=== PATIENT | female | born 1945 | race Hispanic/Latino ===

== ENCOUNTER 2018-04-01 13:58 | Emergency (ER) | payer MEDICARE ==
[2018-04-01 14:10] VITALS: BMI 29.2
[2018-04-01 14:13] VITALS: RESP 18
[2018-04-01] MEDS ORDERED: Lidocaine 5% Patch TD STA (14:29)
--- NOTE | 2018-04-01 14:58 | ED PDOC ---
Arrival/HPI - General Chief Complaint: Upper Extremity Problem/Injury Time Seen by Provider: 04/01/18 14:21 Historian: Patient - History of Present Illness Narrative History of Present Illness (Text): 73 y/o F w/ h/o chronic bronchitis, and occasional shortness of breath, and lymph node removal (about 20 years ago), presenting to the emergency department complaining of aching right-sided neck pain radiating to her shoulder since Thursday. She states she was watching TV and suddenly started to experience right sided neck pain. Patient notes she was at [facility] ([place]) earlier today, where she was given 3 Tylenol and a Valium pill at 09:00 this morning, without significant alleviation in pain. Patient denies ever having these symptoms in the past. Patient denies any changes in vision, recent falls, injuries, or any other compl aints. PMD: Dr. Lopez Time/Duration: > week (patient notes onset 03/28/18, 4 days ago) Symptom Onset: Sudden Symptom Course: Unchanged Quality: Aching Severity Level: Moderate Activities at Onset: Rest Context: Home (patient notes she was at home watching TV) Past Medical History - Provider Review Nursing Documentation Reviewed: Yes - Travel History Have you recently traveled outside [place] w/in the past 3 mons?: No - Cardiac Hx Cardiac Disorders: No - Pulmonary Hx Bronchitis: Yes - Neurological Hx Neurological Disorder: No - HEENT Hx HEENT Disorder: No - Renal Hx Renal Disorder: No - Endocrine/Metabolic Hx Endocrine Disorders: No - Hematological/Oncological Hx Blood Disorders: No - Integumentary Hx Dermatological Disorder: No - Musculoskeletal/Rheumatological Hx Musculoskeletal Disorders: No - Gastrointestinal Hx Gastrointestinal Disorders: No - Genitourinary/Gynecological Hx Genitourinary Disorders: No - Psychiatric Hx Psychophysiologic Disorder: No Hx Substance Use: No Family/Social History - Physician Review Nursing Documentation Reviewed: Yes Family/Social History: No Known Family HX Smoking Status: Never Smoked Hx Alcohol Use: No Hx Substance Use: No Allergies/Home Meds Allergies/Adverse Reactions: Allergies No Known Allergies Allergy (Verified 04/01/18 14:10) Home Medications: Home Meds Medication Instructions Recorded Confirmed Cholecalciferol (Vitamin D3) 1 tab PO DAILY 04/01/18 04/01/18 [D3-5000 90 mg-5000 Iu] Levothyroxine Sodium [Levoxyl] 0.1 mg PO DAILY 04/01/18 04/01/18 Phentermine HCl [Adipex-P] 37.5 mg PO DAILY 04/01/18 04/01/18 RX: Aspirin [Aspirin Chewable] 81 mg PO DAILY 04/01/18 04/01/18 RX: Simvastatin 10 mg PO DAILY 04/01/18 04/01/18 RX: hydroCHLOROthiazide 25 mg PO DAILY 04/01/18 04/01/18 [Hydrodiuril] amLODIPine [Norvasc] 5 mg PO DAILY 04/01/18 04/01/18 Review of Systems - Physician Review All systems were reviewed & negative as marked: Yes - Review of Systems Eyes: Normal. absent: Vision Changes Musculoskeletal: Neck Pain (patient notes aching right-sided neck pain, radiating to right shoulder ), Other (right shoulder pain ). absent: Normal Physical Exam Vital Signs Reviewed: Yes Vital Signs Temp Pulse Resp BP Pulse Ox 04/01/18 14:10 97.5 F L 138 H 18 93/63 L 98 Temperature: Afebrile Blood Pressure: Hypotensive (at 93/63) Pulse: Tachycardic (at 138) Respiratory Rate: Normal Appearance: Positive for: Well-Appearing, Non-Toxic Pain Distress: Mild Mental Status: Positive for: Alert and Oriented X 3 - Systems Exam Head: Present: Atraumatic, Normocephalic, Other (Unable to rotate neck to right side) Pupils: Present: PERRL Extroacular Muscles: Present: EOMI Conjunctiva: Present: Normal Mouth: Present: Moist Mucous Membranes Neck: Present: Paraspinal Tenderness (Right sided trapezius tenderness), Other (Limited ROM towards R side). No: Meningeal Signs, MIDLINE TENDERNESS Respiratory/Chest: Present: Clear to Auscultation, Good Air Exchange. No: Respiratory Distress, Accessory Muscle Use Cardiovascular: Present: Regular Rate and Rhythm, Normal S1, S2. No: Murmurs Abdomen: No: Tenderness, Distention, Peritoneal Signs Back: Present: Normal Inspection. No: Midline Tenderness Upper Extremity: Present: NORMAL PULSES, Tenderness (TTP of right trapezius muscle), Neurovascularly Intact (no loss of sensation), Other (motor strength preserved in upper extremities). No: Normal Inspection, Cyanosis, Edema Lower Extremity: Present: Normal Inspection. No: Edema Neurological: Present: GCS=15, CN II-XII Intact, Speech Normal, Normal Sensory Function Skin: Present: Warm, Dry, Normal Color. No: Rashes Psychiatric: Present: Alert, Oriented x 3, Normal Insight, Normal Concentration Medical Decision Making ED Course and Treatment: 04/01/18 14:21 Impression: 73 year old female who presents to the emergency department complaining of aching right-sided neck pain radiating to her shoulder since Thursday. Differential Diagnosis included but are not limited to: Cervical stenosis Musculoskeletal pain Torticollis Plan: -- CT of cervical spine w/o Contrast -- Lidoderm -- Toradol -- Valium -- Reassess and disposition Prior Visits: Notes and results from previous visits were reviewed. Progress Notes: 04/01/18 16:14 Patient reassessed and reports improvement in pain. CT findings consistent with disk bulge at C6-C7. Patient informed of findings and will follow up with PCP. Neurosurgery follow up also provided. Scripts given. Patient is stable for discharge. - RAD Interpretation Narrative RAD Interpretations (Text): CT of cervical spine reviewed by radiologist, shows: Dictator : Thor Chaidez MD Report Date : 04/01/2018 15:36:06 FINDINGS: VERTEBRAE: No fracture. Normal alignment. No destructive bony lesion. DISCS/SPINAL CANAL/NEURAL FORAMINA: No significant central canal or neural foraminal stenosis. There is mild disc degeneration at C5-6 and C6-7. There is a left paracentral disc protrusion and osteophyte at C5-6. PARASPINAL SOFT TISSUES: Unremarkable. OTHER FINDINGS: None. IMPRESSION: No acute findings Radiology Orders: 04/01/18 14:29 CERVICAL SPINE W/O CONTRAST [CT] Stat Cyber Security Engineer: Radiologist - Medication Orders Current Medication Orders: Discontinued Medications Diazepam (Valium) 5 mg PO ONCE ONE; Protocol Stop: 04/01/18 14:29 Ketorolac Tromethamine (Toradol) 60 mg IM STAT STA Stop: 04/01/18 14:29 Lidocaine (Lidoderm) 1 ea TD DAILY STA Stop: 04/01/18 14:30 - Scribe Statement The provider has reviewed the documentation as recorded by the Scribe Yolanda Castellanos All medical record entries made by the Scribe were at my direction and personally dictated by me. I have reviewed the chart and agree that the record accurately reflects my personal performance of the history, physical exam, medical decision making, and the department course for this patient. I have also personally directed, reviewed, and agree with the discharge instructions and disposition. Disposition/Present on Arrival - Present on Arrival Any Indicators Present on Arrival: No History of DVT/PE: No History of Uncontrolled Diabetes: No Urinary Catheter: No History of Decub. Ulcer: No History Surgical Site Infection Following: None - Disposition Have Diagnosis and Disposition been Completed?: Yes Diagnosis: Sprain of cervical neck, Bulging of cervical intervertebral disc Disposition: HOME/ ROUTINE Disposition Time: 16:09 Patient Plan: Discharge Condition: IMPROVED Discharge Instructions (ExitCare): Cervical Muscle Strain (DC), Neck Sprain (DC), Intervertebral Discectomy (DC) Prescriptions: Cyclobenzaprine [Flexeril] 5 mg PO PRN PRN 10 Days #10 tab PRN Reason: Muscle Spasm Ibuprofen [Motrin] 600 mg PO Q6H #12 tab Lidocaine 5% [Lidoderm] 1 ea TD Q12H 5 Days #5 patch Referrals: Donovan Lopez MD [Primary Care Provider] - Follow up with primary Rudy Kaiser MD [Staff Provider] - Follow up with primary Forms: [employer] ([employer])
[2018-04-01 15:06] VITALS: BP 125/68; PULSE 94; TEMP 97.6; O2SAT 95
--- NOTE | 2018-04-01 15:39 | CT ---
Date of service: 04/01/2018 PROCEDURE: CT Cervical Spine without contrast HISTORY: neck pain w/ limited ROM COMPARISON: None available. TECHNIQUE: Axial computed tomography images were obtained of the cervical spine without the use of intravenous contrast. Coronal and sagittal reformatted images were created and reviewed. Radiation dose: Total exam DLP = 608.34 mGy-cm. This CT exam was performed using one or more of the following dose reduction techniques: Automated exposure control, adjustment of the mA and/or kV according to patient size, and/or use of iterative reconstruction technique. FINDINGS: VERTEBRAE: No fracture. Normal alignment. No destructive bony lesion. DISCS/SPINAL CANAL/NEURAL FORAMINA: No significant central canal or neural foraminal stenosis. There is mild disc degeneration at C5-6 and C6-7. There is a left paracentral disc protrusion and osteophyte at C5-6. PARASPINAL SOFT TISSUES: Unremarkable. OTHER FINDINGS: None. IMPRESSION: No acute findings
== END 2018-04-01 16:30 | disposition home or self-care (01) ==
LOC: ED 13:58
DX: S13.4XXA Sprain of ligaments of cervical spine, initial encounter (principal); X58.XXXA Exposure to other specified factors, initial encounter
CPT/HCPCS: 72125; 96372; 99284; J1885

== ENCOUNTER 2018-06-15 10:24 | Inpatient (IN) | payer MEDICARE ==
[2018-06-15 10:26] VITALS: BMI 25.6
[2018-06-15] MEDS ORDERED: Levalbuterol 1.25 MG/3 ML Inhal Soln UD IH STA (10:43)
--- NOTE | 2018-06-15 10:47 | ED PDOC ---
Arrival/HPI - General Time Seen by Provider: 06/15/18 10:30 Historian: Patient - History of Present Illness Narrative History of Present Illness (Text): 06/15/18 10:44 73yo female with past medical history of hypertension, COPD, Cervical spine surgery (s/p sgx 2months ago), developed left arm thrombus s/p surgery, currently on Xarelto, present with complaint of shortness of breath since this morning. Notes shortness of breath is not exertional. She is a tobacco smoker. Reports Orthopnea since this morning. Denies chest pain, LE edema, calf pain, dizziness, cough, diaphoresis, nausea, vomiting, ripping tearing upper back pain, any other complaint. Past Medical History - Provider Review Nursing Documentation Reviewed: Yes - Cardiac Hx Cardiac Disorders: No - Pulmonary Hx Bronchitis: Yes - Neurological Hx Neurological Disorder: No - HEENT Hx HEENT Disorder: No - Renal Hx Renal Disorder: No - Endocrine/Metabolic Hx Endocrine Disorders: No - Hematological/Oncological Hx Blood Disorders: No - Integumentary Hx Dermatological Disorder: No - Musculoskeletal/Rheumatological Hx Musculoskeletal Disorders: No - Gastrointestinal Hx Gastrointestinal Disorders: No - Genitourinary/Gynecological Hx Genitourinary Disorders: No - Psychiatric Hx Psychophysiologic Disorder: No Hx Substance Use: No Family/Social History - Physician Review Nursing Documentation Reviewed: Yes Family/Social History: Unknown Family HX Smoking Status: Never Smoked Hx Alcohol Use: No Hx Substance Use: No Allergies/Home Meds Allergies/Adverse Reactions: Allergies No Known Allergies Allergy (Verified 06/15/18 17:51) Home Medications: Home Meds Medication Instructions Recorded Confirmed Levothyroxine Sodium [Levoxyl] 0.1 mg PO DAILY 04/01/18 06/15/18 RX: Aspirin [Aspirin Chewable] 81 mg PO DAILY 04/01/18 06/15/18 RX: Simvastatin 10 mg PO DAILY 04/01/18 06/15/18 RX: hydroCHLOROthiazide 25 mg PO DAILY 04/01/18 06/15/18 [Hydrodiuril] amLODIPine [Norvasc] 5 mg PO DAILY 04/01/18 06/15/18 Rivaroxaban [Xarelto] 15 mg PO BID 06/15/18 06/15/18 Review of Systems - Physician Review All systems were reviewed & negative as marked: Yes - Review of Systems Constitutional: Normal Eyes: Normal ENT: Normal Respiratory: SOB. absent: Cough, Sputum, Wheezing Cardiovascular: Normal Gastrointestinal: Normal Genitourinary Female: Normal Musculoskeletal: Normal Skin: Normal Neurological: Normal Endocrine: Normal Hemo/Lymphatic: Normal Psychiatric: Normal Physical Exam Vital Signs Reviewed: Yes Vital Signs Temp Pulse Resp BP Pulse Ox 06/15/18 10:30 97.4 F L 124 H 22 102/63 100 Temperature: Afebrile Blood Pressure: Normal Pulse: Tachycardic Respiratory Rate: Tachypneic Appearance: Positive for: Well-Appearing, Non-Toxic, Comfortable Pain Distress: None Mental Status: Positive for: Alert and Oriented X 3 - Systems Exam Head: Present: Atraumatic, Normocephalic Pupils: Present: PERRL Extroacular Muscles: Present: EOMI Conjunctiva: Present: Normal Mouth: Present: Moist Mucous Membranes Neck: Present: Normal Range of Motion Respiratory/Chest: Present: Clear to Auscultation, Good Air Exchange. No: Respiratory Distress, Accessory Muscle Use, Wheezes, Decreased Breath Sounds, Rales, Retracting, Rhonchi Cardiovascular: Present: Regular Rate and Rhythm, Normal S1, S2. No: Murmurs Abdomen: No: Tenderness, Distention, Peritoneal Signs Back: Present: Normal Inspection Upper Extremity: Present: Normal Inspection. No: Cyanosis, Edema Lower Extremity: Present: Normal Inspection. No: Edema Neurological: Present: GCS=15, CN II-XII Intact, Speech Normal Skin: Present: Warm, Dry, Normal Color. No: Rashes Psychiatric: Present: Alert, Oriented x 3, Normal Insight, Normal Concentration Medical Decision Making ED Course and Treatment: 06/15/18 11:34 73yo female in Emergency department with complaint of shortness of breath since this morning Labs EKG D dimer blood culture chest xray Reassess EKG Sinus tachy @ 125bpm. RBBB; LAD. N-stemi Labs reviewed and hypokalemia 2.6 noted. Potassium repleted. Elevated Cr was noted. No previous lab available for comparison. On further discussion with pt she report that she was referred to a Glass Engraver by her PMD, but not sure why. Lactate elevated. Pt tachy but no leukocytosis. Does not meet the SIRS criteria. 06/15/18 19:52 V/Q Normal VQ scan based on modified PIOPED Criteria Case was DW Dr. Han and pt was admitted for hypokalemia, shortness of breath Her VS improved while in Emergency department. Repeat Lactacte was negative. - RAD Interpretation Radiology Orders: 06/15/18 10:35 CHEST PORTABLE [RAD] Stat Disposition/Present on Arrival - Present on Arrival Any Indicators Present on Arrival: No History of DVT/PE: No History of Uncontrolled Diabetes: No Urinary Catheter: No History Surgical Site Infection Following: None - Disposition Have Diagnosis and Disposition been Completed?: Yes Diagnosis: Renal insufficiency, Hypokalemia, SOB (shortness of breath) Disposition: HOSPITALIZED Disposition Time: 15:35 Patient Plan: Admission Patient Problems: Current Active Problems Problem Status Onset Hypokalemia Acute Renal insufficiency Acute SOB (shortness of breath) Acute Condition: FAIR
[2018-06-15 10:51] LABS: BASO # 0.05 K/mm3 (0.0-2.0); BASO % 0.7 % (0.0-3.0); EOS # 0.1 (0.0-0.7); EOS % 1.4 % (1.5-5.0); GRAN % 68.9 % (50.0-68.0); LYMPH # 1.6 (1.2-3.4); LYMPH % 21.4 % (22.0-35.0); MEAN CORPUSCULAR HEMOGLOBIN 33.2 pg (25.0-35.0); MONO # 0.6 (0.1-0.6); MONO % 7.6 % (1.0-6.0); RBC 3.61 10^6/uL (3.5-6.1); RED CELL DISTRIBUTION WIDTH 18.3 % (11.5-14.5); WHITE BLOOD COUNT 7.3 10^3/uL (4.5-11.0)
[2018-06-15 10:54] LABS: VENOUS BLOOD GAS BASE EXCESS 3.9 mmol/L (0.0-2.0); VENOUS BLOOD GAS PO2 28 mm/Hg (30-55); VENOUS BLOOD PH 7.38 (7.32-7.43)
--- NOTE | 2018-06-15 11:00 | RAD ---
Date of service: 06/15/2018 HISTORY: SOB COMPARISON: No prior. FINDINGS: LUNGS: No active pulmonary disease. PLEURA: No significant pleural effusion identified, no pneumothorax apparent. CARDIOVASCULAR: Aortic atherosclerotic calcifications. Cardiomediastinal silhouette within normal limits. OSSEOUS STRUCTURES: No significant abnormalities. VISUALIZED UPPER ABDOMEN: Normal. OTHER FINDINGS: None. IMPRESSION: No active disease.
[2018-06-15 11:12] LABS: CALCIUM 10.6 mg/dL (8.4-10.5)
[2018-06-15 11:13] LABS: TROPONIN I 0.02 ng/mL
[2018-06-15] MEDS ORDERED: Potassium Chloride 20 mEq ER Tab PO STA (11:15)
[2018-06-15 11:57] LABS: INR 1.82; PARTIAL THROMBOPLASTIN TIME 39.2 Seconds (25.1-36.5); PROTHROMBIN TIME 21.2 SECONDS (9.4-12.5)
[2018-06-15 16:37] LABS: VENOUS BLOOD GAS BASE EXCESS 4.4 mmol/L (0.0-2.0); VENOUS BLOOD GAS PO2 35 mm/Hg (30-55); VENOUS BLOOD PH 7.38 (7.32-7.43)
[2018-06-15] MEDS ORDERED: Sodium Chloride 0.9% 500 ML IV STA (19:07)
[2018-06-15] MEDS ORDERED: Pneumococcal 23-Valent Vaccine IM ONE (19:38)
[2018-06-15] MEDS ORDERED: Influenza Vaccine 60 mcg/0.5 mL SYR (4YR UP) IM ONE (19:38)
[2018-06-15] MEDS ORDERED: Potassium Chloride 20 mEq ER Tab PO ONE (22:00)
[2018-06-16 06:56] LABS: ALB/GLOB RATIO 1.1 (1.1-1.8); ALBUMIN 3.5 g/dL (3.0-4.8); CALCIUM 9.2 mg/dL (8.4-10.5)
[2018-06-16 07:05] LABS: MEAN CELL VOLUME 96.2 fl (80.0-105.0); MEAN CORPUSCULAR HEMOGLOBIN 32.4 pg (25.0-35.0); MEAN CORPUSCULAR HGB CONC 33.7 g/dl (31.0-37.0); MEAN PLATELET VOLUME 9.5 fl (7.0-11.0); RBC 2.9 10^6/uL (3.5-6.1); RED CELL DISTRIBUTION WIDTH 18.6 % (11.5-14.5); WHITE BLOOD COUNT 5.6 10^3/uL (4.5-11.0)
[2018-06-16 07:28] LABS: HEMOGLOBIN 9.4 g/dL (12.0-16.0)
[2018-06-16] MEDS ORDERED: Potassium Chloride 20 mEq ER Tab PO STA (08:44)
[2018-06-16] MEDS ORDERED: Potassium Chloride 20 mEq ER Tab PO ONE (08:45)
--- NOTE | 2018-06-16 08:58 | NM ---
Date of service: 06/15/2018 COMPARISON: June 15, 2018. TECHNIQUE: 32.1 mCi technetium 99-m DTPA aerosol. 3.25 mCI technetium 99-m MAA administered intravenously. FINDINGS: VENTILATION COMPONENT: Heterogeneous ventilation. Retention of radionuclide in the tracheobronchial tree and ingestion of radionuclide in the stomach, incidental findings PERFUSION COMPONENT: Heterogeneous distribution of radionuclide. No geographic, segmental, lobar abnormalities apparent on the present examination. IMPRESSION: Low probability ventilation perfusion scan for pulmonary embolism. Concordant findings (preliminary report) provided by [facility].
--- NOTE | 2018-06-16 09:13 | CARD ---
APPROVED REPORT Date of service: 06/15/2018 EKG Measurement Heart [id number] NH 112P [id number] <Conclusion> Sinus tachycardia Left axis deviation Right bundle branch block Possible Lateral infarct, age undetermined Abnormal ECG
[2018-06-16] MEDS: Levothyroxine 100 MCG TAB PO SCH (09:32)
[2018-06-16] MEDS: Sodium Chloride 0.9% 1,000 ML IV SCH ×2 (09:42→22:31)
[2018-06-16] MEDS ORDERED: Azithromycin 500MG/NS 250ml 500 MG/250 ML BAG IVPB ONE (12:41)
[2018-06-16] MEDS ORDERED: Pantoprazole 20 mg EC Tab PO ONE (12:41)
[2018-06-16] MEDS ORDERED: cefTRIAXone 1 gm 1 GM/100 ML BAG IVPB ONE (12:41)
[2018-06-16] MEDS ORDERED: MethylPREDNISolone 40 mg Vial ONE (12:45)
--- NOTE | 2018-06-16 13:00 | HP ---
DATE OF EXAM: 06/16/2018 HISTORY OF PRESENT ILLNESS: The patient is 73-year-old, lives with her boyfriend. She states yesterday after she made herself coffee and toast, she started to become shortness of breath, denies any chest pain. No recent cough or cold history. She does have a history of COPD. No history of nausea or vomiting. No history of diarrhea, no hemoptysis, no hematemesis. No history of weight loss. The patient states she has been suffering from neck pain. For that, [facility] 6 weeks of antibiotics. She just finished the course and she has been admitted in [facility] and was discharged in April, but she still goes there for rehab. The patient denies any chest pain, no dizziness; however, she has shortness of breath. PAST MEDICAL HISTORY: Significant for, 1. Hypertension. 2. History of hypothyroidism. 3. Hyperlipidemia. ALLERGIES: SHE IS NOT ALLERGIC TO ANY MEDICATION. HOME MEDICATIONS: Medication at home, she is on Xarelto, aspirin, hydrochlorothiazide, simvastatin 10 mg daily, Norvasc 5 mg daily and levothyroxine 100 mcg daily. SOCIAL HISTORY: She used to be heavy smoker, quit couple of years ago, socially drinks, lives with her boyfriend. PHYSICAL EXAMINATION: GENERAL: The patient is awake, alert, oriented and communicative. VITAL SIGNS: She is afebrile. Pulse 72, respirations 20, blood pressure 126/74. LUNGS: Bilateral fair airflow in upper lung region; however, she has diffusely decreased breath sounds posteriorly and also has occasional rhonchi scattered. ABDOMEN: Soft and nontender. No rebound. No guarding. NEUROLOGICAL: The patient is awake, alert, oriented and communicative. LABORATORY EXAM: WBCs 5.6, hemoglobin 9.4, hematocrit 27.9, platelets 251. PT is 21.2, INR 1.82. Chemistry; sodium 137, potassium 2.8, chloride 102, CO2 of 29, BUN 21, creatinine 1.8, blood sugar of 89. She has nuclear scan done that is low probability. X-ray of chest is unremarkable. ASSESSMENT: 1. Chronic obstructive pulmonary disease exacerbation since long-standing history of smoking. 2. History of hypertension. 3. Hyperlipidemia. 4. Hypothyroidism. PLAN: We will resume her usual medication. I will start her on aspirin 81 mg daily. Potassium will be supplemented. We will start her on IV steroid, antibiotics. Continue nebulizer treatment, order for CT scan of the chest and order for echocardiogram. We will revaluate in a.m. Marimar Handley MD
[2018-06-16 13:33] LABS: HDL CHOLESTEROL 47 mg/dL (29-60)
[2018-06-16 13:35] LABS: LDL CHOLESTEROL 91 mg/dL (0-129)
[2018-06-16 17:22] LABS: PH,URINE 6.5 (4.7-8.0); URINE BILIRUBIN NEGATIVE (NEGATIVE); URINE BLOOD MODERATE (NEGATIVE); URINE GLUCOSE (UA) NEGATIVE (NEGATIVE); URINE LEUKOCYTE ESTERASE MODERATE Leu/uL (NEGATIVE); URINE PROTEIN NEGATIVE mg/dL (<30 mg/dL); URINE UROBILINOGEN 0.2 E.U./dL (<1 E.U./dL)
[2018-06-16 17:26] LABS: URINE APPEARANCE SL CLOUDY (CLEAR); URINE COLOR YELLOW (YELLOW)
[2018-06-16 17:37] LABS: URINE BACTERIA FEW /hpf
[2018-06-16] MEDS ORDERED: Levalbuterol 1.25 MG/3 ML Inhal Soln UD IH PRN (18:00)
[2018-06-16] MEDS: MethylPREDNISolone 40 mg Vial IVP SCH (22:31)
[2018-06-17] MEDS: MethylPREDNISolone 40 mg Vial IVP SCH (05:57)
[2018-06-17] MEDS ORDERED: Pantoprazole 40 mg EC Tab PO SCH (06:00)
[2018-06-17 06:42] LABS: BASO # 0.01 K/mm3 (0.0-2.0); BASO % 0.2 % (0.0-3.0); GRAN # 4.44 (1.4-6.5); GRAN % 83.1 % (50.0-68.0); HEMOGLOBIN 9.7 g/dL (12.0-16.0); LYMPH # 0.8 (1.2-3.4); LYMPH % 14.6 % (22.0-35.0); MEAN CORPUSCULAR HEMOGLOBIN 32.6 pg (25.0-35.0); MEAN CORPUSCULAR HGB CONC 33.6 g/dl (31.0-37.0); MEAN PLATELET VOLUME 9.5 fl (7.0-11.0); MONO # 0.1 (0.1-0.6); MONO % 2.1 % (1.0-6.0); RBC 2.98 10^6/uL (3.5-6.1); RED CELL DISTRIBUTION WIDTH 18.2 % (11.5-14.5); WHITE BLOOD COUNT 5.3 10^3/uL (4.5-11.0)
[2018-06-17 07:09] LABS: ALB/GLOB RATIO 1.1 (1.1-1.8); ALBUMIN 3.9 g/dL (3.0-4.8); CALCIUM 9.1 mg/dL (8.4-10.5)
[2018-06-17 07:11] LABS: FREE T4 1.14 ng/dL (0.78-2.19)
[2018-06-17] MEDS: Levothyroxine 100 MCG TAB PO SCH (08:35)
[2018-06-17] MEDS ORDERED: cefTRIAXone 1 gm 1 GM/100 ML BAG IVPB SCH (10:00)
[2018-06-17] MEDS ORDERED: Azithromycin 500MG/NS 250ml 500 MG/250 ML BAG IVPB SCH (10:00)
[2018-06-17] MEDS: Sodium Chloride 0.9% 1,000 ML IV SCH (10:12)
[2018-06-17 12:39] VITALS: BP 145/80; PULSE 93; RESP 19; TEMP 97.6; O2SAT 100
--- NOTE | 2018-06-18 00:42 | DS ---
HISTORY OF PRESENT ILLNESS: The patient is a 73-year-old who was admitted for severe shortness of breath. The patient does have a history of COPD. The patient states she was well on New 's Janelle, but next day she started to have shortness of breath. She did have some cough and congestion going for few days. The patient states 3 months prior to this admission, she was having intractable neck pain, she was taking to [facility] where she was diagnosed with infection in her cervical vertebrae. She received antibiotics for 6 weeks, her neck pain improved significantly. The only reason to come to hospital this time is her shortness of breath. Denies any fever or chills. No history of nausea. No weakness. No numbness. PAST MEDICAL HISTORY: Significant for hypertension, COPD, hypothyroidism. The patient was given IV steroids and nebulizer treatment. She refused to have CT of the chest done, however, echo was done recently and was within normal range, LV function was within normal range. PHYSICAL EXAMINATION: GENERAL: She is comfortable. VITAL SIGNS: She is afebrile, pulse 93, respirations 19, blood pressure 145/80. LUNGS: Bilateral fair airflow. No expiratory rhonchi. HEART: S1, S2 audible. ABDOMEN: Soft, nontender. No rebound. No guarding. NEUROLOGIC: The patient is alert, awake, oriented, communicative, ambulatory. LABORATORY DATA: WBC 5.3, hemoglobin 9.7, hematocrit 28.9, platelets 236. Chemistry, sodium 138, potassium 4.3, chloride 105, CO2 of 24, BUN 18, creatinine 1.4, blood sugar 123. Blood cultures are negative. ASSESSMENT: 1. Chronic obstructive pulmonary disease exacerbation. 2. Asthmatic bronchitis. 3. Hypothyroidism. 4. Hypertension. 5. Hyperlipidemia. 6. History of deep vein thrombosis. PLAN: The patient will be started on prednisone 20 mg twice a day. She was given prescription of Pulmicort and Spiriva. She will follow with Dr. Barahona. During the hospital stay, she also had V/Q scan done that was unremarkable. She will followup with Jun in a week or so. Marimar Handley MD
--- NOTE | 2018-06-18 10:55 | PQF ---
PROVIDER RESPONSE TEXT: Stage 3 REVIEWER QUERY TEXT: Kidney Disease, Chronic CKD Stage Chronic Kidney Disease (CKD) is documented in the Medical Record. Please specify the disease stage ( includes probable or suspected) Such as: -- Chronic kidney disease Stage 1 -- Chronic kidney disease Stage 2 -- Chronic kidney disease Stage 3 -- Chronic kidney disease Stage 4 -- Chronic kidney disease Stage 5 -- Chronic kidney disease Stage 5, requiring dialysis -- End Stage Renal Disease -- Other, please specify Stages are defined by the [employer] as follows: CKD Stage I GFR >= 90 ml / min per 1.73 m2 and persistent albuminuria CKD Stage 2 GFR between 60 and 89 with persistent albuminuria CKD Stage 3 GFR between 30 and 59 CKD Stage 4 GFR between 15 and 29 CKD Stage 5 GFR between <15 or End Stage Renal Disease The patient's Clinical Indicators include: Patient admitted with elevated BUN and creatinine. Patient gives hx of referral to a seed district sales manager but unsure why. Please specify if patient has CKD, stage if present. Query created by: Cecelia Godoy on 06/17/2018 9:26 AM Electronically signed by: Marimar Handley MD 06/18/2018 10:52 AM
== END 2018-06-17 13:52 | disposition home or self-care (01) | DRG 192 ==
LOC: ED 10:24 → ERH 15:36 → 3RNO 17:05 → OBSVTOIN 06-16 14:37
PROVIDERS: ADMIT Internal Medicine; ATTEND Internal Medicine
DX: J44.1 Chronic obstructive pulmonary disease with (acute) exacerbation (principal); I12.9 Hypertensive chronic kidney disease with stage 1 through stage 4 chronic kidney disease, or unspecified chronic kidney disease; N18.3 Chronic kidney disease, stage 3 (moderate); E03.9 Hypothyroidism, unspecified; F17.200 Nicotine dependence, unspecified, uncomplicated; E87.6 Hypokalemia; E78.5 Hyperlipidemia, unspecified; Z79.01 Long term (current) use of anticoagulants; Z86.718 Personal history of other venous thrombosis and embolism